=== PATIENT | male | born 2000 | race American Indian/Alaskan Native ===

== ENCOUNTER 2019-08-02 21:04 | Emergency (ER) | payer SELFPAY ==
[2019-08-02 21:13] VITALS: BP 123/75
[2019-08-02] MEDS ORDERED: IBUPROFEN 800 MG TAB PO ONE (21:30)
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
== END 2019-08-02 23:01 | disposition home or self-care (01) ==
LOC: ED 21:04
DX: S00.83XA Contusion of other part of head, initial encounter (principal); M25.532 Pain in left wrist; J45.909 Unspecified asthma, uncomplicated; F17.200 Nicotine dependence, unspecified, uncomplicated; Z79.899 Other long term (current) drug therapy; V49.49XA Driver injured in collision with other motor vehicles in traffic accident, initial encounter; Y93.89 Activity, other specified; Y92.488 Other paved roadways as the place of occurrence of the external cause; Y99.8 Other external cause status
CPT/HCPCS: 70450